=== PATIENT | male | born 1995 | race African-American/Black ===

== ENCOUNTER 2019-01-09 15:07 | Emergency (ER) | payer MEDICAID, SELFPAY ==
[2019-01-09 16:27] LABS: Hemoglobin 16.9 g/dL (14.0-18.0); Mean Corpuscular HGB CONC 33.7 g/dL (32.0-36.0); Mean Corpuscular Hemoglobin 29.9 pg (27.0-31.0); Mean Corpuscular Volume 88.6 fL (78.0-98.0); Mean Platelet Volume 7.1 fL (7.4-10.4); Platelet Count 218 thou/uL (130-400); RBC Distribution Width 11.8 % (11.5-14.5); Red Blood Cell (RBC) Count 5.66 mill/uL (4.70-6.10); White Blood Cell (WBC) Count 4.8 thou/uL (4.8-10.8)
[2019-01-09 16:44] LABS: Band 3 % (5-11); Eosinophils 1 % (0-10); Lymphocytes 36 % (21-51); MDiff Complete? YES; Monocytes 9 % (0-10); Neutrophil 51 % (42-75); Platelet Morphology Comment Appears Adequate
[2019-01-09 16:46] LABS: Bilirubin, Total 0.7 mg/dL (0.2-1.2); Calcium 9.8 mg/dL (7.8-10.44); Chloride 98 mmol/L (98-107); Potassium 3.8 mmol/L (3.5-5.1); Sodium 137 mmol/L (136-145)
[2019-01-09 16:48] LABS: AST (SGOT) 44 U/L (5-34)
[2019-01-09 16:57] LABS: ALT (SGPT) 27 U/L (8-55); Albumin 4.4 g/dL (3.5-5.0); Alkaline Phosphatase 75 U/L (40-150); Anion Gap 16 mmol/L (10-20); BUN (Urea Nitrogen) 15 mg/dL (8.9-20.6); Calc. Creatinine Clearance 0 mL/min (70-130); Carbon Dioxide 27 mmol/L (22-29); Estimated GFR-MDRD Greater than 90; Globulin 3.6 g/dL (2.4-3.5); Glucose 76 mg/dL (70-105)
== END 2019-01-09 17:35 | disposition home or self-care (01) ==
LOC: ERS 15:07
DX: E86.0 Dehydration (principal)
CPT/HCPCS: 80053; 85025; 96360